=== PATIENT | female | born 1975 | race Hispanic/Latino ===

== ENCOUNTER 2022-06-15 01:51 | Emergency (ER) | payer BC ==
[~2022-06-15] VITALS: Ht 165.1 cm; Wt 59.9 kg
[2022-06-15] MEDS ORDERED: LIDOCAINE HCL 1% 20 ML VIAL ONE (02:33)
[2022-06-15] MEDS ORDERED: SULF1TAB42 PO (03:03)
[2022-06-15 03:18] VITALS: BP 142/71
== END 2022-06-15 03:30 | disposition home or self-care (01) ==
LOC: EDH 01:51
DX: S71.111A Laceration without foreign body, right thigh, initial encounter (principal); X58.XXXA Exposure to other specified factors, initial encounter; Y93.89 Activity, other specified; Y92.89 Other specified places as the place of occurrence of the external cause; Y99.8 Other external cause status
CPT/HCPCS: 12032